=== PATIENT | male | born 1965 ===

== ENCOUNTER 2019-08-06 16:18 | Emergency (ER) | payer OTHER ==
[2019-08-06 17:09] LABS: #Eosinphils 0.3 thou/uL (0.0-0.7); #Lymphocytes 1.1 thou/uL (1.20-3.40); #Monocytes 0.7 thou/uL (0.11-0.59); #Neutrophils 4.5 thou/uL (1.40-6.50); %Eosinophils 4.3 % (0.0-10.0); %Neutrophils 68.8 % (42.0-75.0); Hemoglobin 11.5 g/dL (14.0-18.0); Mean Corpuscular HGB CONC 33.3 g/dL (32.0-36.0); Mean Corpuscular Hemoglobin 32.2 pg (27.0-31.0); Mean Corpuscular Volume 96.9 fL (78.0-98.0); Mean Platelet Volume 8.8 fL (7.4-10.4); Platelet Count 120 thou/uL (130-400); RBC Distribution Width 12.3 % (11.5-14.5); Red Blood Cell (RBC) Count 3.57 mill/uL (4.70-6.10); White Blood Cell (WBC) Count 6.6 thou/uL (4.8-10.8)
--- NOTE | 2019-08-06 17:10 | RAD ---
Portable frontal chest radiograph: 08/06/2019 COMPARISON: None HISTORY: Congestion with fever and cough FINDINGS: Cardiac silhouette is enlarged. Midline sternotomy wires are present. Mild elevation of lef t hemidiaphragm. There is blunting of the left costophrenic angle suggesting pleural fluid and/or pleural thickening within the lateral left base. IMPRESSION: Prominent cardiac silhouette. Blunting of the left costophrenic angle as detailed above.
[2019-08-06 17:22] LABS: ALT (SGPT) 47 U/L (8-55); AST (SGOT) 52 U/L (5-34); Albumin 3.2 g/dL (3.5-5.0); Alkaline Phosphatase 246 U/L (40-110); Anion Gap 14 mmol/L (10-20); BUN (Urea Nitrogen) 29 mg/dL (8.4-25.7); Bilirubin, Total 0.4 mg/dL (0.2-1.2); Calc. Creatinine Clearance 0 mL/min (70-130); Calcium 8.9 mg/dL (7.8-10.44); Carbon Dioxide 21 mmol/L (22-29); Chloride 106 mmol/L (98-107); Estimated GFR-MDRD 27; Glucose 139 mg/dL (70-105); Potassium 5.4 mmol/L (3.5-5.1); Protein, Total 7.2 g/dL (6.0-8.3); Sodium 136 mmol/L (136-145)
[2019-08-06] MEDS ORDERED: Nitroglycerin 2% Ointment 1 INCH/1 GM Packet ONE (20:04)
[2019-08-06] MEDS ORDERED: Furosemide 20 MG/2 ML VIAL ONE (20:04)
[2019-08-06] MEDS ORDERED: Acetaminophen 500 MG TAB ONE ×2 (20:53→20:54)
== END 2019-08-06 21:29 | disposition short-term general hospital (02) ==
LOC: ERS 16:18
DX: E87.5 Hyperkalemia (principal); J90 Pleural effusion, not elsewhere classified; N19 Unspecified kidney failure; I11.0 Hypertensive heart disease with heart failure; I50.9 Heart failure, unspecified; E11.9 Type 2 diabetes mellitus without complications; Z79.4 Long term (current) use of insulin; Z79.82 Long term (current) use of aspirin; Z79.899 Other long term (current) drug therapy; Z79.891 Long term (current) use of opiate analgesic
CPT/HCPCS: 36415; 71045; 80053; 83880; 84484; 85025; 87804; 93005; 94640; 96374; J1940; J7620